=== PATIENT | female | born 1960 ===

== ENCOUNTER 2018-03-07 12:12 | Emergency (ER) | payer OTHER ==
[~2018-03-07] VITALS: Ht 165.1 cm; Wt 88.5 kg
[2018-03-07] MEDS ORDERED: LIPITOR20 MG PO (13:06)
== END 2018-03-07 15:54 | disposition home or self-care (01) ==
LOC: ER 12:12
DX: S82.62XA Displaced fracture of lateral malleolus of left fibula, initial encounter for closed fracture (principal); W18.39XA Other fall on same level, initial encounter; Y93.89 Activity, other specified; Y92.811 Bus as the place of occurrence of the external cause; Y99.8 Other external cause status

== ENCOUNTER 2021-03-14 10:06 | Outpatient (CLI) | payer OTHER ==
[~2021-03-14 10:06] MED LIST: LIPITOR20 MG PO
[2021-04-28] MEDS ORDERED: ZESTRIL10 M1 PO (14:02)
[2021-04-28] MEDS ORDERED: FOSAMAX70 MG PO (14:03)
[2021-04-28] MEDS ORDERED: CALCIUM500 M2 PO (14:03)
== END 2021-03-14 10:18 | disposition home or self-care (01) ==
LOC: MRI 10:06
PROVIDERS: ATTEND Obstetrics & Gynecology Gynecologic Oncology
DX: C53.0 Malignant neoplasm of endocervix (principal)
CPT/HCPCS: 72197

== ENCOUNTER → 2021-04-28 08:00 | Outpatient (CLI) | payer OTHER ==
[~2021-04-28 08:00] MED LIST changes: +CALCIUM500 M2 PO; +FOSAMAX70 MG PO; +ZESTRIL10 M1 PO
== END | disposition home or self-care (01) ==
LOC: LAB 08:00 → ADM 11:30 → CIR.AMB 05-04 11:30 → EDSTATUS 05-04 11:30
PROVIDERS: ATTEND Obstetrics & Gynecology Gynecologic Oncology
DX: N88.8 Other specified noninflammatory disorders of cervix uteri (principal); Z03.818 Encounter for observation for suspected exposure to other biological agents ruled out; I10 Essential (primary) hypertension

== ENCOUNTER 2025-07-13 10:40 | Outpatient (CLI) | payer OTHER | END 2025-07-13 10:45 | disposition home or self-care (01) | LOC: SONOGRAMA 10:40 → RAD 10:40 | DX: M25.512 Pain in left shoulder (principal); M75.42 Impingement syndrome of left shoulder; M75.102 Unspecified rotator cuff tear or rupture of left shoulder, not specified as traumatic ==